=== PATIENT | female | born 1960 | race Caucasian/White ===

== ENCOUNTER 2020-10-14 17:24 | Emergency (ER) | payer OTHER, MEDICAID ==
[~2020-10-14] VITALS: Ht 157.5 cm; Wt 122.5 kg
[~2020-10-14 17:24] MED LIST: IBUPROFEN 800800 M1 PO; ULTRAM 50MG TAB50 MG PO
[2020-10-14] MEDS ORDERED: OMEPRAZOLE 20 M20 M1 PO (17:42)
[2020-10-14] MEDS ORDERED: PROZAC 10 MG CA10 MG PO (17:42)
[2020-10-14] MEDS ORDERED: LISINOPRIL-HCT1 EACH PO (17:42)
[2020-10-14] MEDS ORDERED: HYDROXYZINE HCL25 M2 PO (17:43)
[2020-10-14] MEDS ORDERED: NEURONTIN 300M300 M2 PO (17:43)
[2020-10-14] MEDS ORDERED: FIBER500 MG PO (17:43)
[2020-10-14] MEDS ORDERED: CALCIUM500 MG PO (17:43)
[2020-10-14] MEDS ORDERED: VITAMIN D3250 MC1 PO (17:44)
[2020-10-14] MEDS ORDERED: BACTRIM DS TAB1 EAC1 PO (18:06)
[2020-10-14 18:10] VITALS: BP 147/126
== END 2020-10-14 18:13 | disposition home or self-care (01) ==
LOC: M.ERS 17:24
DX: N61.0 Mastitis without abscess (principal); I10 Essential (primary) hypertension; Z90.49 Acquired absence of other specified parts of digestive tract; Z98.890 Other specified postprocedural states; Z96.643 Presence of artificial hip joint, bilateral; Z86.19 Personal history of other infectious and parasitic diseases; Z96.652 Presence of left artificial knee joint